=== PATIENT | female | born 1980 | race Caucasian/White ===

== ENCOUNTER 2016-12-24 19:01 | Inpatient (IN) | payer OTHER ==
[~2016-12-24] VITALS: Ht 157.5 cm; Wt 83.7 kg
[2016-12-24 20:14] LABS: HEMATOCRIT 44.9 % (36.0-46.0); MCH 29.6 PG (29.0-34.0); MCHC 34.3 G/DL (30.0-36.0); MCV 86.3 FL (83-99); MEAN PLAT.VOLUME 10.5 uM^3 (9.5-12.4); PLATELET COUNT 215 K/uL (156-360); RBC DIS.WIDTH-CV 13.8 % (11.8-14.6); RBC DIS.WIDTH-SD 43.4 % (39-53); WHITE BLOOD COUNT 10.6 K/uL (4.1-10.2)
[2016-12-24 20:26] LABS: CHLORIDE 107 mEq/L (99-109); POTASSIUM 4.1 mEq/L (3.7-5.4); SODIUM 139 mEq/L (136-147)
[2016-12-24 20:27] LABS: GLUCOSE 93 mg/dL (70-99)
[2016-12-24 20:29] LABS: ANION GAP 10 MEQ/L (2-14)
[2016-12-24 20:31] LABS: GFR ESTIMATE (CALCULATED) > 59 mL/min/
[2016-12-24 20:32] LABS: UREA NITROGEN (BUN) 10 mg/dL (9-23)
[2016-12-24 20:35] LABS: TROP-I INTERPRETATION NEGATIVE; TROPONIN-I 0.11 ng/mL (0.0-0.30)
[2016-12-24 23:31] LABS: TROP-I INTERPRETATION POSITIVE
[2016-12-24 23:32] LABS: TROPONIN-I 0.64 ng/mL (0.0-0.30)
[2016-12-25] MEDS ORDERED: VENTOLIN HFA18 GM IH (00:34)
[2016-12-25] MEDS ORDERED: SYNTHROID50 MCG PO (00:34)
[2016-12-25 01:07] LABS: PROTHROMBIN TIME 10.3 (9.2-11.2); PTT 26.6 (25-32)
[2016-12-25 07:38] LABS: HEMATOCRIT 40.5 % (36.0-46.0); MCH 29.4 PG (29.0-34.0); MCHC 34.1 G/DL (30.0-36.0); MCV 86.4 FL (83-99); MEAN PLAT.VOLUME 10.3 uM^3 (9.5-12.4); PLATELET COUNT 194 K/uL (156-360); RBC DIS.WIDTH-CV 13.6 % (11.8-14.6); RBC DIS.WIDTH-SD 42.6 % (39-53); RED BLOOD COUNT 4.69 M/uL (3.80-5.20); WHITE BLOOD COUNT 7.9 K/uL (4.1-10.2)
[2016-12-25 08:09] LABS: TROP-I INTERPRETATION POSITIVE
[2016-12-25 08:15] LABS: ANION GAP 8 MEQ/L (2-14); CHLORIDE 110 MEQ/L (99-109); POTASSIUM 3.7 MEQ/L (3.7-5.4); SAMPLE HEMOLYSIS CHECK 0; SAMPLE ICTERIC CHECK 0; SAMPLE LIPEMIA CHECK 0; SODIUM 141 MEQ/L (136-147); TOTAL BILIRUBIN 0.5 MG/DL (0.0-1.0)
[2016-12-25 08:16] LABS: TROPONIN-I 2.46 ng/mL (0.0-0.30)
[2016-12-25 08:21] LABS: ALKALINE PHOSPHATASE 52 IU/L (3-129); GFR ESTIMATE (CALCULATED) > 59 mL/min/; GLUCOSE 90 mg/dL (70-99); HDL CHOLESTEROL 39 MG/DL (Desirable>=50); LDL CHOLESTEROL 90 mg/dL (Desirable<100); NON-HDL CHOLESTEROL 110 mg/dL (Desirable<160); TOTAL CHOLESTEROL 149 mg/dL (Desirable<200); TRIGLYCERIDES 100 MG/DL (Normal: <150); UREA NITROGEN (BUN) 5 mg/dL (9-23)
[2016-12-25 12:16] LABS: AMPHETAMINES QUANT VALUE 0 NG/ML; BARBITUATES QUANT VALUE 0 NG/ML; BENZODIAZEPINES QUANT VALUE 0 NG/ML; BENZODIAZEPINES, URINE SCREEN Negative (200 ng/mL); MARIJUANA QUANT VALUE 0 NG/ML; OPIATES QUANTITATIVE VALUE 0 NG/ML; PHENCYCLIDINE QUANT VALUE 0 NG/ML
[2016-12-25 12:36] LABS: TROP-I INTERPRETATION POSITIVE
[2016-12-25 15:23] VITALS: BP 103/56
[2016-12-25 21:01] VITALS: BP 100/62
[2016-12-25 23:16] VITALS: BP 119/88
[2016-12-26 03:58] VITALS: BP 98/50
[2016-12-26 06:39] LABS: EOSINOPHIL (%) 4.6 % (0-5); EOSINOPHIL COUNT 0.3 K/uL (0-0.3); HEMATOCRIT 39.6 % (36.0-46.0); IMMATURE GRANULOCYTE (%) 0.2 % (0.0-0.7); LYMPHOCYTE COUNT 2.2 K/uL (1.0-2.8); MCH 30.3 PG (29.0-34.0); MCHC 34.1 G/DL (30.0-36.0); MONOCYTE (%) 8.6 % (3-12); MONOCYTE COUNT 0.6 K/uL (0-0.8); NEUTROPHIL (%) 52.2 % (45-76); NEUTROPHIL COUNT 3.3 K/uL (1.8-6.4); PLATELET COUNT 176 K/uL (156-360); RBC DIS.WIDTH-SD 45.5 % (39-53); RED BLOOD COUNT 4.45 M/uL (3.80-5.20); WHITE BLOOD COUNT 6.4 K/uL (4.1-10.2)
[2016-12-26 06:59] LABS: ANION GAP 6 MEQ/L (2-14); CHLORIDE 111 MEQ/L (99-109); GFR ESTIMATE (CALCULATED) > 59 mL/min/; GLUCOSE 91 mg/dL (70-99); POTASSIUM 4.2 MEQ/L (3.7-5.4); SAMPLE HEMOLYSIS CHECK 0; SAMPLE ICTERIC CHECK 0; SAMPLE LIPEMIA CHECK 0; SODIUM 141 MEQ/L (136-147); UREA NITROGEN (BUN) 10 mg/dL (9-23)
[2016-12-26 09:05] VITALS: BP 101/51
[2016-12-26] MEDS ORDERED: ASPIR-LOW81 MG PO (13:08)
== END 2016-12-26 14:03 | disposition home or self-care (01) | DRG 313 ==
LOC: EME 19:01 → EDOF 12-25 02:00 → 4EAST 12-25 15:06
PROVIDERS: Hospitalist; Internal Medicine; Physician Assistant
DX: R07.89 Other chest pain (principal); E03.9 Hypothyroidism, unspecified; J45.909 Unspecified asthma, uncomplicated; E66.9 Obesity, unspecified; F17.210 Nicotine dependence, cigarettes, uncomplicated; I10 Essential (primary) hypertension; E11.9 Type 2 diabetes mellitus without complications; E78.5 Hyperlipidemia, unspecified; R79.89 Other specified abnormal findings of blood chemistry; C44.90 Unspecified malignant neoplasm of skin, unspecified; Z79.82 Long term (current) use of aspirin; Z68.33 Body mass index [BMI] 33.0-33.9, adult
CPT/HCPCS: 71020; 71275; 80048; 80053; 80061; 80306 90; 84439; 84443; 84484; 85025; 85027; 85610; 85730; 93005; 99281; 99285; J7030

== ENCOUNTER 2017-05-11 15:36 | Emergency (ER) | payer OTHER ==
[~2017-05-11] VITALS: Ht 157.5 cm; Wt 92.7 kg
[~2017-05-11 15:36] MED LIST: ASPIR-LOW81 MG PO; SYNTHROID50 MCG PO; VENTOLIN HFA18 GM IH
[2017-05-11 17:30] LABS: HEMATOCRIT 43.6 % (36.0-46.0); MCH 29.2 PG (29.0-34.0); MCHC 32.8 G/DL (30.0-36.0); MEAN PLAT.VOLUME 9.4 uM^3 (9.5-12.4); PLATELET COUNT 246 K/uL (156-360); RBC DIS.WIDTH-CV 12.6 % (11.8-14.6); RBC DIS.WIDTH-SD 41.4 % (39-53); WHITE BLOOD COUNT 8.1 K/uL (4.1-10.2)
[2017-05-11 17:47] LABS: CHLORIDE 108 mEq/L (99-109); POTASSIUM 3.7 mEq/L (3.7-5.4); SODIUM 140 mEq/L (136-147)
[2017-05-11 17:48] LABS: GLUCOSE 84 mg/dL (70-99)
[2017-05-11 17:50] LABS: ANION GAP 6 MEQ/L (2-14)
[2017-05-11 17:52] LABS: GFR ESTIMATE (CALCULATED) > 59 mL/min/
[2017-05-11 17:53] LABS: TROP-I INTERPRETATION NEGATIVE; TROPONIN-I 0.06 ng/mL (0.0-0.30); UREA NITROGEN (BUN) 11 mg/dL (9-23)
[2017-05-11 20:10] LABS: PROTHROMBIN TIME 10.6 (9.2-11.2); PTT 26.3 (25-32)
[2017-05-11 20:30] LABS: QUANTITATIVE HCG < 4.0 MIU/ML
[2017-05-11 22:58] VITALS: BP 99/62
== END 2017-05-11 22:59 | disposition home or self-care (01) ==
LOC: EME 15:36
DX: R60.0 Localized edema (principal); J44.9 Chronic obstructive pulmonary disease, unspecified; F17.200 Nicotine dependence, unspecified, uncomplicated; Z85.828 Personal history of other malignant neoplasm of skin
CPT/HCPCS: 71020; 80048; 84484; 84702; 85027; 85379; 85610; 85730; 93005; 93970; 99281; 99283

== ENCOUNTER → 2017-05-17 | Outpatient (CLI) | payer OTHER | END | disposition home or self-care (01) | LOC: EKG 09:58 | DX: I05.1 Rheumatic mitral insufficiency (principal); I07.1 Rheumatic tricuspid insufficiency | CPT/HCPCS: 93306 ==

== ENCOUNTER → 2017-10-18 | Outpatient (CLI) | payer OTHER | END | disposition home or self-care (01) | LOC: RAD 15:08 | DX: R10.32 Left lower quadrant pain (principal); R31.9 Hematuria, unspecified; M54.9 Dorsalgia, unspecified | CPT/HCPCS: 74177 ==